=== PATIENT | female | born 1990 | race Two or more races ===

== ENCOUNTER → 2016-11-22 | Outpatient (REF) | payer OTHER ==
[~2016-11-22] MED LIST: IBUP60TA PO; PERCOCET PO; PREN1TAB11 PO; unasom PO
[2016-11-22 13:31] LABS: MICROSCOPIC EXAM PERFORMED
[2016-11-22 13:32] LABS: WBC, URINE 0-1 /hpf (0-3)
[2016-11-22 13:33] LABS: BACTERIA, URINE SMALL AMOUNT; HYALINE CAST, URINE NONE SEEN /lpf (0-1); RBC, URINE NONE SEEN /hpf (0-3); SQUAMOUS EPITHELIAL CELL URINE SMALL AMOUNT /hpf (SMALL AMT)
[2016-11-24 00:07] LABS: Candida species Negative (Negative); Gardnerella vaginalis Positive (Negative); Trichamonas vaginalis Negative (Negative)
== END ==
LOC: M SMT 13:01
PROVIDERS: ATTEND Specialist
DX: R32 Unspecified urinary incontinence (principal)

== ENCOUNTER → 2017-05-27 | Outpatient (REF) | payer OTHER | LOC: M SFHCLERA 18:36 | DX: J02.9 Acute pharyngitis, unspecified (principal) ==

== ENCOUNTER → 2019-01-19 | Outpatient (REF) | payer OTHER ==
[~2019-01-19] MED LIST changes: +IBUP600T42 PO; -IBUP60TA PO
[2019-01-19 23:42] LABS: CHLAMYDIA DNA AMPLIFICATION NEGATIVE (NEGATIVE); GC DNA AMPLIFICATION NEGATIVE (NEGATIVE)
== END ==
LOC: M SFHCLERA 18:25
PROVIDERS: ATTEND Nurse Practitioner Family
DX: R10.9 Unspecified abdominal pain (principal)
CPT/HCPCS: 81002; 81025; 87086; 87661; G0463